=== PATIENT | female | born 1995 | race Caucasian/White ===

== ENCOUNTER 2020-12-01 20:58 | Emergency (ER) | payer MEDICAID ==
[~2020-12-01] VITALS: Ht 160 cm; Wt 65.8 kg
[2020-12-01 21:17] VITALS: BP 148/71
--- NOTE | 2020-12-01 21:20 | NUR ---
TO LOBBY A/W BED AMBULATORY
--- NOTE | 2020-12-01 22:53 | NUR ---
MARION CERNA AT BEDSIDE FOR MEDICAL EVALUATION.
[2020-12-01 23:19] LABS: BASOPHILS # (AUTO) 0.1 K/uL (0.00-0.22); BASOPHILS % (AUTO) 0.5 % (0.0-2.0); EOSINOPHILS # (AUTO) 0.1 K/uL (0-0.4); EOSINOPHILS % (AUTO) 1.1 % (0.0-4.0); HEMATOCRIT 41.3 % (36-48); HEMOGLOBIN 13.7 g/dL (12.0-16.0); LYMPHOCYTES # (AUTO) 2.1 K/uL (2.5-16.5); LYMPHOCYTES % (AUTO) 17.4 % (20.5-51.1); MEAN CORPUSCULAR HEMOGLOBIN 31 pg (27-31); MEAN CORPUSCULAR HGB CONC 33 g/dL (33-37); MEAN CORPUSCULAR VOLUME 92.3 fL (80-94); MONOCYTES # (AUTO) 0.9 K/uL (0.8-1.0); MONOCYTES % (AUTO) 7.6 % (1.7-9.3); NEUTROPHILS # (AUTO) 8.8 K/uL (1.8-7.7); NEUTROPHILS % (AUTO) 73.4 % (42.2-75.2); PLATELET COUNT (AUTO) 339 K/uL (140-450); RED BLOOD CELL COUNT(AUTO) 4.48 MIL/uL (4.20-5.40); WHITE BLOOD COUNT (AUTO) 11.9 K/uL (4.8-10.8)
--- NOTE | 2020-12-02 00:30 | NUR ---
PATIENT PRESENTS TO ED WITH C/O VOMITING . PT [id number] . DENIES SKIN IS PINK/WARM/DRY; AAOX4 WITH EVEN AND STEADY GAIT; LUNGS CLEAR BL; HR EVEN AND REGULAR; PT DENIES ANY FEVER, CP, SOB, OR COUGH AT THIS TIME; PATIENT STATES PAIN OF 0/10 AT THIS TIME; VSS; PATIENT POSITIONED FOR COMFORT; HOB ELEVATED; BEDRAILS UP X2; BED DOWN. ER MD MADE AWARE OF PT STATUS.
[2020-12-02 01:03] LABS: APPEARANCE,URINE SL CLOUDY (CLEAR); BILIRUBIN,URINE NEGATIVE (NEGATIVE); BLOOD, URINE NEGATIVE (NEGATIVE); COLOR,URINE YELLOW (YELLOW); LEUKOCYTE ESTERASE ,URINE NEGATIVE (NEGATIVE); NITRITE, URINE POSITIVE (NEGATIVE); PH,URINE 6.5 (5.0-9.0); UGLUCOSE NEGATIVE (NEGATIVE)
[2020-12-02 01:30] LABS: RBC,URINE 0-5 /HPF (0-5); WBC,URINE 0-5 /HPF (0-5)
[2020-12-02 02:00] VITALS: BP 112/68
[2020-12-02] MEDS ORDERED: DOXY1TCP PO (02:22)
[2020-12-02] MEDS ORDERED: CEPH-588 PO (02:22)
--- NOTE | 2020-12-02 02:42 | NUR ---
Patient discharged with v/s stable. Written and verbal after care instructions given and explained. Patient alert, oriented and verbalized understanding of instructions. Ambulatory with steady gait. All questions addressed prior to discharge. ID band removed. Patient advised to follow up with PMD. Rx of KEFLEX & DOXYLAMINE/ PYRIDOXINE given. Patient educated on indication of medication including possible reaction and side effects. Opportunity to ask questions provided and answered.
== END 2020-12-02 02:42 | disposition home or self-care (01) ==
LOC: MED 20:58
DX: O46.8X1 Other antepartum hemorrhage, first trimester (principal); O23.41 Unspecified infection of urinary tract in pregnancy, first trimester; O21.9 Vomiting of pregnancy, unspecified; Z3A.01 Less than 8 weeks gestation of pregnancy
CPT/HCPCS: 36415; 76817; 81001; 84702; 85025; 86900; 86901; 87086; 99284

== ENCOUNTER 2021-03-31 04:45 | Observation (INO) | payer MEDICAID, SELFPAY ==
[~2021-03-31] VITALS: Ht 162.6 cm; Wt 74.4 kg
[~2021-03-31 04:45] MED LIST: CEPH-588 PO; DOXY1TCP PO
[2021-03-31 04:56] VITALS: BP 106/57
[2021-03-31] MEDS ORDERED: LACTATED RINGERS 1,000 ML IV SCH (06:00)
[2021-03-31 06:24] LABS: ALBUMIN 2.8 g/dL (3.4-5.0); ANION GAP 11.3 (8-16); CARBON DIOXIDE 24.7 mmol/L (21-32); CREATININE 0.4 mg/dL (0.6-1.3); TOTAL BILIRUBIN 0.1 mg/dL (0.0-1.0)
[2021-03-31 06:28] LABS: BASOPHILS % (AUTO) 0.3 % (0.0-2.0); EOSINOPHILS # (AUTO) 0.2 K/uL (0-0.4); EOSINOPHILS % (AUTO) 1.5 % (0.0-4.0); HEMATOCRIT 34.4 % (36-48); HEMOGLOBIN 11.4 g/dL (12.0-16.0); LYMPHOCYTES % (AUTO) 17.1 % (20.5-51.1); MEAN CORPUSCULAR HEMOGLOBIN 30 pg (27-31); MEAN CORPUSCULAR HGB CONC 33 g/dL (33-37); MEAN CORPUSCULAR VOLUME 89.7 fL (80-94); MONOCYTES # (AUTO) 1.2 K/uL (0.8-1.0); NEUTROPHILS # (AUTO) 8.3 K/uL (1.8-7.7); NEUTROPHILS % (AUTO) 71.1 % (42.2-75.2); PLATELET COUNT (AUTO) 285 K/uL (140-450); RED BLOOD CELL COUNT(AUTO) 3.84 MIL/uL (4.20-5.40); RED CELL DISTRIBUTION WIDTH 13.7 % (11.6-13.7); WHITE BLOOD COUNT (AUTO) 11.6 K/uL (4.8-10.8)
--- NOTE | 2021-03-31 06:58 | NUR ---
PATIENT HAS BEEN SCREENED AND CATEGORIZED LOW NUTRITION RISK. PATIENT WILL BE SEEN WITHIN 7 DAYS OF ADMISSION. 04/08/21 TANESHA ROGERS MS, RDN
== END 2021-03-31 09:18 | disposition home or self-care (01) ==
LOC: MLD 04:45
PROVIDERS: ADMIT Obstetrics & Gynecology; ATTEND Obstetrics & Gynecology
DX: O26.892 Other specified pregnancy related conditions, second trimester (principal); R10.9 Unspecified abdominal pain; Z3A.26 26 weeks gestation of pregnancy
CPT/HCPCS: 36415; 59025; 76817; 80053; 81000; 85025; 87086; 87426; 96360; 96361; G0378; Q0092

== ENCOUNTER 2022-04-16 08:28 | Emergency (ER) | payer MEDICAID, OTHER ==
[~2022-04-16] VITALS: Ht 162.6 cm; Wt 69.1 kg
[2022-04-16 08:58] VITALS: BP 146/72
--- NOTE | 2022-04-16 09:02 | NUR ---
FLU, COVID SWABS DONE.
--- NOTE | 2022-04-16 15:29 | NUR ---
PATIENT LEFT WITHOUT BEING SEEN BY DR. JAUREGUI. NO FURTHER CARE PROVIDED FOR PATIENT.
== END 2022-04-16 15:29 | disposition left against medical advice (07) ==
LOC: MED 08:28
DX: R11.10 Vomiting, unspecified (principal); Z20.822 Contact with and (suspected) exposure to COVID-19; Z53.21 Procedure and treatment not carried out due to patient leaving prior to being seen by health care provider
CPT/HCPCS: 71045

== ENCOUNTER 2022-09-13 07:42 | Emergency (ER) | payer OTHER ==
[~2022-09-13] VITALS: Ht 162.6 cm; Wt 76.2 kg
[2022-09-13 07:52] VITALS: BP 123/93
--- NOTE | 2022-09-13 07:56 | NUR ---
26 YO FEMALE BIBS, COMPLAINTS. OF N/V/D FOR 2 DAYS. STATES SHE HAS BEEN VOMITING YELLOW, AND LIQUID YELLOW DIARRHEA. PATIENT COMPLAINTS OF PAIN TO ABDOMEN 7/10 RADIATING TOWARDS THE BACK. ALLERGIES: NKA PMH: APPENDIX REMOVAL.
--- NOTE | 2022-09-13 07:56 | NUR ---
Assisted patient to bed 9. Patient was able to void 1x and provide urine sample
[2022-09-13] MEDS ORDERED: NACL 0.9% 1,000 ML IV SCH (08:00)
[2022-09-13 08:15] LABS: BASOPHILS # (AUTO) 0.1 K/uL (0.00-0.22); BASOPHILS % (AUTO) 0.7 % (0.0-2.0); EOSINOPHILS # (AUTO) 0.2 K/uL (0-0.4); HEMATOCRIT 39.5 % (36-48); HEMOGLOBIN 13.1 g/dL (12.0-16.0); LYMPHOCYTES # (AUTO) 2.1 K/uL (2.5-16.5); LYMPHOCYTES % (AUTO) 19.9 % (20.5-51.1); MEAN CORPUSCULAR HEMOGLOBIN 29 pg (27-31); MEAN CORPUSCULAR HGB CONC 33 g/dL (33-37); MEAN CORPUSCULAR VOLUME 86.4 fL (80-94); MONOCYTES # (AUTO) 0.7 K/uL (0.8-1.0); MONOCYTES % (AUTO) 6.3 % (1.7-9.3); NEUTROPHILS # (AUTO) 7.5 K/uL (1.8-7.7); NEUTROPHILS % (AUTO) 71.1 % (42.2-75.2); PLATELET COUNT (AUTO) 308 K/uL (140-450); RED BLOOD CELL COUNT(AUTO) 4.57 MIL/uL (4.20-5.40); WHITE BLOOD COUNT (AUTO) 10.5 K/uL (4.8-10.8)
[2022-09-13 08:32] LABS: APPEARANCE,URINE CLEAR (CLEAR); BILIRUBIN,URINE NEGATIVE (NEGATIVE); BLOOD, URINE NEGATIVE (NEGATIVE); COLOR,URINE YELLOW (YELLOW); LEUKOCYTE ESTERASE ,URINE TRACE (NEGATIVE); NITRITE, URINE POSITIVE (NEGATIVE); PH,URINE 6.5 (5.0-9.0); UGLUCOSE NEGATIVE (NEGATIVE)
[2022-09-13 08:40] LABS: ALBUMIN 3.3 g/dL (3.4-5.0); ANION GAP 12.7 (8-16); CARBON DIOXIDE 27.1 mmol/L (21-32); CREATININE 0.5 mg/dL (0.6-1.3); POTASSIUM 3.8 mmol/L (3.5-5.1); TOTAL BILIRUBIN 0.2 mg/dL (0.0-1.0)
[2022-09-13] MEDS ORDERED: DOXY25TA61 PO (09:16)
[2022-09-13] MEDS ORDERED: PYRI-218 PO (09:16)
[2022-09-13] MEDS ORDERED: CEPH-588 PO (09:23)
--- NOTE | 2022-09-13 09:36 | NUR ---
Patient discharged with v/s stable. Written and verbal after care instructions given and explained. Patient alert, oriented and verbalized understanding of instructions. Ambulatory with steady gait. All questions addressed prior to discharge. ID band removed. Patient advised to follow up with PMD. Rx of CEPHALEXIN, UNISOM, VITAMIN B-6 given. Patient educated on indication of medication including possible reaction and side effects. Opportunity to ask questions provided and answered.
== END 2022-09-13 09:35 | disposition home or self-care (01) ==
LOC: MED 07:42
DX: O23.11 Infections of bladder in pregnancy, first trimester (principal); O26.891 Other specified pregnancy related conditions, first trimester; R19.7 Diarrhea, unspecified; R11.10 Vomiting, unspecified; Z3A.13 13 weeks gestation of pregnancy; Z79.899 Other long term (current) drug therapy
CPT/HCPCS: 36415; 80053; 81001; 81025; 83690; 85025; 87086; 96360; 99284; J7030

== ENCOUNTER 2022-10-21 10:22 | Emergency (ER) | payer OTHER ==
[~2022-10-21] VITALS: Ht 162.6 cm; Wt 75.7 kg
[~2022-10-21 10:22] MED LIST changes: +DOXY25TA61 PO; +PYRI-218 PO
[2022-10-21 10:25] VITALS: BP 132/84
[2022-10-21] MEDS ORDERED: ACETAMINOPHEN 325 MG TAB PO ONE (10:55)
[2022-10-21] MEDS ORDERED: ACET-10509 PO (11:08)
[2022-10-21] MEDS ORDERED: BUPIVACAINE-MPF 0.5% 30 ML VIAL INJ ONE (11:20)
--- NOTE | 2022-10-21 11:29 | NUR ---
27YO F PRESENTS W/DENTAL PAIN -LT SIDE UPPER, TYLENOL TAKEN YESTERDAY W/O RELIEF, PAIN WORSENED TODAY. PT STATES DENTIST WILL REMOVE WISDOM TOOTH POST DELIVERY, 19WKS . A0. SAFETY MAINTAINED. HX: DENIES NKA
[2022-10-21 12:12] VITALS: BP 128/81
--- NOTE | 2022-10-21 12:12 | NUR ---
The patient's care was reviewed and supervised by ED Agency Nurse 9, RN, RN.
--- NOTE | 2022-10-21 12:12 | NUR ---
Patient discharged with v/s stable. Written and verbal after care instructions given and explained. Patient alert, oriented and verbalized understanding of instructions. Ambulatory with steady gait. All questions addressed prior to discharge. ID band removed. Patient advised to follow up with PMD. Rx of TYLENOL 500MG given. Opportunity to ask questions provided and answered.
== END 2022-10-21 12:12 | disposition home or self-care (01) ==
LOC: MED 10:22
DX: O99.612 Diseases of the digestive system complicating pregnancy, second trimester (principal); K08.89 Other specified disorders of teeth and supporting structures; Z3A.19 19 weeks gestation of pregnancy; Z90.49 Acquired absence of other specified parts of digestive tract; Z79.899 Other long term (current) drug therapy
CPT/HCPCS: 99282; J3490

== ENCOUNTER 2022-12-25 12:37 | Emergency (ER) | payer OTHER ==
[~2022-12-25] VITALS: Ht 162.6 cm; Wt 80.8 kg
[~2022-12-25 12:37] MED LIST changes: +ACET-10509 PO
[2022-12-25 13:15] VITALS: BP 106/80; PULSE 89; RESP 20; TEMP 96.8; O2SAT 98
[2022-12-25] MEDS ORDERED: BACI-418 TP (14:25)
== END 2022-12-25 14:32 | disposition home or self-care (01) ==
LOC: MED 12:37
DX: L30.9 Dermatitis, unspecified (principal); Z79.899 Other long term (current) drug therapy
CPT/HCPCS: 99282

== ENCOUNTER 2023-08-18 17:15 | Emergency (ER) | payer OTHER ==
[~2023-08-18] VITALS: Ht 162.6 cm; Wt 81.6 kg
[~2023-08-18 17:15] MED LIST changes: +BACI-418 TP
[2023-08-18 17:50] VITALS: BP 111/63; PULSE 80; RESP 18; TEMP 98.5; O2SAT 98
[2023-08-18] MEDS: NACL 0.9% 1,000 ML IV ONE (20:16)
[2023-08-18] MEDS: PROCHLORPERAZINE 10 MG/2 ML VIAL IVP ONE (20:22)
[2023-08-18] MEDS: KETOROLAC 30 MG/ML VIAL IVP ONE (20:23)
[2023-08-18] MEDS ORDERED: SUD30 PO (21:24)
[2023-08-18] MEDS ORDERED: ONDA-188 PO (21:24)
[2023-08-18] MEDS ORDERED: FLONAS NS (21:24)
[2023-08-18] MEDS ORDERED: IBUP-2213 PO (21:25)
[2023-08-18 21:40] VITALS: BP 111/63; PULSE 80; RESP 18; TEMP 98.5; O2SAT 98
== END 2023-08-18 21:40 | disposition home or self-care (01) ==
LOC: MED 17:15
DX: R51.9 Headache, unspecified (principal); R09.81 Nasal congestion; R05.9 Cough, unspecified; Z79.899 Other long term (current) drug therapy
CPT/HCPCS: 81002; 81025; 96361; 96374; 96375; 99284; J0780; J1885; J7030

== ENCOUNTER 2024-02-06 15:40 | Emergency (ER) | payer OTHER ==
[~2024-02-06] VITALS: Ht 162.6 cm; Wt 77.7 kg
[~2024-02-06 15:40] MED LIST changes: -ACET-10509 PO; +ACET500T99 PO; +FLONAS NS; +IBUP-2213 PO; +ONDA-188 PO; +SUD30 PO
[2024-02-06 15:42] VITALS: BP 133/81; PULSE 71; RESP 18; TEMP 97.3; O2SAT 98
[2024-02-06 15:55] VITALS: O2SAT 96
[2024-02-06 16:03] VITALS: BP 121/87; RESP 18; TEMP 97.3
[2024-02-06] MEDS: IBUPROFEN 600 MG TAB PO ONE (16:31)
[2024-02-06] MEDS: ONDANSETRON 4 MG ODT PO ONE (16:32)
[2024-02-06 16:35] VITALS: O2SAT 100
[2024-02-06 16:44] VITALS: PULSE 63
[2024-02-06 17:18] LABS: APPEARANCE,URINE CLEAR (CLEAR); BILIRUBIN,URINE NEGATIVE (NEGATIVE); BLOOD, URINE NEGATIVE (NEGATIVE); COLOR,URINE YELLOW (YELLOW); LEUKOCYTE ESTERASE ,URINE NEGATIVE (NEGATIVE); NITRITE, URINE NEGATIVE (NEGATIVE); PROTEIN,URINE NEGATIVE (NEGATIVE); UGLUCOSE NEGATIVE (NEGATIVE); UROBILINOGEN,URINE 0.2 EU/dL (0.2 - 1)
[2024-02-06] MEDS ORDERED: ONDA-188 SL (17:25)
== END 2024-02-06 17:44 | disposition home or self-care (01) ==
LOC: MED 15:40
DX: R51.9 Headache, unspecified (principal); R11.2 Nausea with vomiting, unspecified; R19.7 Diarrhea, unspecified; R07.9 Chest pain, unspecified; Z79.899 Other long term (current) drug therapy
CPT/HCPCS: 71045; 81003; 81025; 99284; Q0092; Q0162